=== PATIENT | female | born 1950 | race Caucasian/White ===

== ENCOUNTER 2024-09-04 17:31 | Emergency (ER) | payer OTHER ==
[~2024-09-04] VITALS: Ht 167.6 cm; Wt 81.6 kg
[2024-09-04 17:31] VITALS: BP 128/78; PULSE 52; RESP 16; TEMP 97; O2SAT 91
== END 2024-09-04 17:57 ==
LOC: MED 17:31
DX: R00.1 Bradycardia, unspecified (principal); J96.01 Acute respiratory failure with hypoxia; I46.9 Cardiac arrest, cause unspecified; E11.9 Type 2 diabetes mellitus without complications; I25.2 Old myocardial infarction; Z86.73 Personal history of transient ischemic attack (TIA), and cerebral infarction without residual deficits; Z95.1 Presence of aortocoronary bypass graft; Z88.0 Allergy status to penicillin
CPT/HCPCS: 31500; 92950; 99285